=== PATIENT | male | born 1985 | race Two or more races ===

== ENCOUNTER 2019-08-18 20:17 | Emergency (ER) | payer SELFPAY ==
[~2019-08-18] VITALS: Ht 157.5 cm; Wt 59.0 kg
[2019-08-18 20:38] VITALS: BP 138/79
== END 2019-08-18 21:35 | disposition home or self-care (01) ==
LOC: U 20:17
DX: R05 Cough (principal); J02.9 Acute pharyngitis, unspecified
CPT/HCPCS: 71045; 99283